=== PATIENT | male | born 1980 | race Caucasian/White ===

== ENCOUNTER → 2016-07-28 | Outpatient (CLI) | payer BC ==
[~2016-07-28] MED LIST: [UNRECOGNIZED DRUG - CODE]
[2016-07-28 12:40] LABS: BASO % 0.8 %; BASO ABS # 0.09 K/uL (0-0.2); COMPLETE YES; EOS % 4.3 %; HEMATOCRIT 46.5 % (42-52); LYMPH % 24.5 %; LYMPH ABS # 2.82 K/uL (1.2-3.4); MEAN CELL VOLUME 90.3 fL (80-100); MEAN CORPUSCULAR HEMOGLOBIN 30.9 pg (25-34); MEAN CORPUSCULAR HGB CONC 34.2 g/dl (32-36); MEAN PLATELET VOLUME 11.1 fL (7.4-10.4); MONO % 9.3 %; NEUT % 60.1 %; PLATELET COUNT 270 K/uL (130-400); RED BLOOD COUNT 5.15 M/uL (4.7-6.1); WHITE BLOOD COUNT 11.53 K/uL (4.8-10.8)
[2016-07-28 12:56] LABS: BLOOD UREA NITROGEN 19 mg/dl (7-18); BUN/CREATININE RATIO 20.6 (10-20); CALCIUM 8.8 mg/dl (8.5-10.1); CARBON DIOXIDE 27 mmol/L (21-32); CHLORIDE 107 mmol/L (98-107); CHOLESTEROL 230 mg/dl (0-200); CREATININE 0.94 mg/dl (0.60-1.40); GLUCOSE 91 mg/dl (70-99); POTASSIUM 4.1 mmol/L (3.5-5.1); SODIUM 141 mmol/L (136-145)
[2016-07-28 13:04] LABS: ALB/GLOB RATIO 1.2 (0.9-2); ALKALINE PHOSPHATASE 116 U/L (45-117); ALT/SGPT 45 U/L (12-78); AST/SGOT 19 U/L (15-37); CHOLESTEROL/HDL RATIO 6.1; HDL CHOLESTEROL 38 mg/dl; LDL CHOLESTEROL CALCULATED 146 mg/dl; TRIGLYCERIDES 229 mg/dl (0-150); VERY LOW DENSITY LIPOPROT CALC 46 mg/dl
== END | disposition home or self-care (01) ==
LOC: C.LABBFT 09:35
PROVIDERS: ATTEND Internal Medicine
DX: E78.5 Hyperlipidemia, unspecified (principal)

== ENCOUNTER → 2017-01-23 | Outpatient (CLI) | payer BC ==
[2017-01-23 17:39] LABS: BASO % 0.6 %; BASO ABS # 0.07 K/uL (0-0.2); COMPLETE YES; EOS % 3.4 %; HEMATOCRIT 45.1 % (42-52); IG% 1.2 %; LYMPH % 22.9 %; LYMPH ABS # 2.83 K/uL (1.2-3.4); MEAN CORPUSCULAR HEMOGLOBIN 31.4 pg (25-34); MEAN CORPUSCULAR HGB CONC 34.1 g/dl (32-36); MEAN PLATELET VOLUME 10.9 fL (7.4-10.4); MONO % 8.4 %; NEUT % 63.5 %; PLATELET COUNT 275 K/uL (130-400); WHITE BLOOD COUNT 12.34 K/uL (4.8-10.8)
[2017-01-23 17:48] LABS: CHOLESTEROL/HDL RATIO 8.1
== END | disposition home or self-care (01) ==
LOC: C.LABBFT 17:38
PROVIDERS: ATTEND Internal Medicine
DX: D72.829 Elevated white blood cell count, unspecified (principal); E78.5 Hyperlipidemia, unspecified

== ENCOUNTER → 2017-06-29 | Outpatient (CLI) | payer BC ==
[2017-06-29 12:27] LABS: BASO % 0.7 %; BASO ABS # 0.07 K/uL (0-0.2); COMPLETE YES; EOS % 3.1 %; EOS ABS # 0.31 K/uL (0-0.5); HEMATOCRIT 45.6 % (42-52); HEMOGLOBIN 15.3 g/dL (14.0-18.0); IG# 0.12 K/uL (0.00-0.02); IG% 1.2 %; LYMPH % 24.6 %; LYMPH ABS # 2.43 K/uL (1.2-3.4); MEAN CELL VOLUME 93.4 fL (80-100); MEAN CORPUSCULAR HEMOGLOBIN 31.4 pg (25-34); MEAN CORPUSCULAR HGB CONC 33.6 g/dl (32-36); MEAN PLATELET VOLUME 10.9 fL (7.4-10.4); MONO % 9.7 %; MONO ABS # 0.96 K/uL (0.11-0.59); NEUT % 60.7 %; PLATELET COUNT 262 K/uL (130-400); RED BLOOD COUNT 4.88 M/uL (4.7-6.1); RED CELL DISTRIBUTION WIDTH CV 14.1 % (11.5-14.5); RED CELL DISTRIBUTION WIDTH SD 47.3 fL (36.4-46.3); WHITE BLOOD COUNT 9.89 K/uL (4.8-10.8)
[2017-06-29 15:07] LABS: ALBUMIN 3.9 gm/dl (3.4-5.0); ALT/SGPT 45 U/L (12-78); AST/SGOT 22 U/L (15-37); BLOOD UREA NITROGEN 15 mg/dl (7-18); CALCIUM 8.8 mg/dl (8.5-10.1); CARBON DIOXIDE 26 mmol/L (21-32); CHLORIDE 105 mmol/L (98-107); CHOLESTEROL 165 mg/dl (0-200); CHOLESTEROL/HDL RATIO 4.7; CREATININE 0.92 mg/dl (0.60-1.40); EstGFR CKD-E NON AfrAm 104.4; HDL CHOLESTEROL 35 mg/dl; POTASSIUM 4.2 mmol/L (3.5-5.1); SODIUM 136 mmol/L (136-145); TRIGLYCERIDES 174 mg/dl (0-150); VERY LOW DENSITY LIPOPROT CALC 35 mg/dl
[2017-06-29 15:07] LABS: GLUCOSE 99 mg/dl (70-99)
[2017-06-29 15:09] LABS: ALB/GLOB RATIO 1.1 (0.9-2); ALKALINE PHOSPHATASE 125 U/L (45-117); LDL CHOLESTEROL (DIRECT) 102 mg/dl; TOTAL PROTEIN 7.3 gm/dl (6.4-8.2)
== END | disposition home or self-care (01) ==
LOC: C.LABBFT 08:59
DX: E78.5 Hyperlipidemia, unspecified (principal); D72.829 Elevated white blood cell count, unspecified; E78.1 Pure hyperglyceridemia

== ENCOUNTER → 2017-07-05 | Outpatient (CLI) | payer BC ==
--- NOTE | 2017-07-05 10:29 | DIAGNOSTIC IMAGING REPORT ---
ABDOMEN ULTRASOUND FOR HERNIA CLINICAL HISTORY: Umbilical hernia. COMPARISON STUDY: None. FINDINGS: Small fat-containing umbilical hernia. This also contains a trace amount of fluid. This increases with Valsalva maneuver and is only partially reducible. The neck of the hernia measures approximately 1 cm. The hernia sac measures up to 2.7 cm. No definite bowel identified within the hernia. IMPRESSION: Small fat-containing umbilical hernia. This is only partially reducible. Electronically signed by: Jemal Domingo M.D. 07/05/2017 10:27 AM Dictated Date/Time: 07/05/2017 10:26 AM
== END | disposition home or self-care (01) ==
LOC: C.ULTR 09:41
PROVIDERS: ATTEND Physician Assistant Medical
DX: K42.9 Umbilical hernia without obstruction or gangrene (principal)

== ENCOUNTER → 2017-09-26 | Outpatient (CLI) | payer BC ==
--- NOTE | 2017-09-26 17:43 | DIAGNOSTIC IMAGING REPORT ---
L SHOULDER MIN 2 VIEWS ROUTINE CLINICAL HISTORY: M25.512 Acute pain of left shoulder COMPARISON: None. DISCUSSION: No fractures or dislocations are visualized. There are no visible periarticular calcifications. IMPRESSION: Unremarkable conventional radiographic evaluation of the left shoulder. Electronically signed by: Gus Garcia M.D. 09/26/2017 5:42 PM Dictated Date/Time: 09/26/2017 5:41 PM
== END | disposition home or self-care (01) ==
LOC: C.RAD 16:50
PROVIDERS: ATTEND Nurse Practitioner
DX: M25.512 Pain in left shoulder (principal)

== ENCOUNTER → 2017-10-11 | Outpatient (CLI) | payer BC ==
[~2017-10-11] MED LIST changes: +ATOR-22 PO; +LISI20TA3 PO; +NAPR-1169 PO
[2017-10-11 16:34] LABS: BASO % 0.6 %; BASO ABS # 0.07 K/uL (0-0.2); EOS % 4.8 %; EOS ABS # 0.59 K/uL (0-0.5); HEMATOCRIT 45.7 % (42-52); HEMOGLOBIN 15.1 g/dL (14.0-18.0); IG# 0.12 K/uL (0.00-0.02); LYMPH % 19.3 %; LYMPH ABS # 2.36 K/uL (1.2-3.4); MEAN CELL VOLUME 92.7 fL (80-100); MEAN CORPUSCULAR HEMOGLOBIN 30.6 pg (25-34); MEAN PLATELET VOLUME 10.4 fL (7.4-10.4); MONO % 9.6 %; MONO ABS # 1.18 K/uL (0.11-0.59); NEUT % 64.7 %; NEUT ABS # 7.91 K/uL (1.4-6.5); PLATELET COUNT 273 K/uL (130-400); RED CELL DISTRIBUTION WIDTH CV 13.8 % (11.5-14.5); RED CELL DISTRIBUTION WIDTH SD 46.9 fL (36.4-46.3); WHITE BLOOD COUNT 12.23 K/uL (4.8-10.8)
[2017-10-11 16:45] LABS: BLOOD UREA NITROGEN 20 mg/dl (7-18); CALCIUM 8.7 mg/dl (8.5-10.1); CARBON DIOXIDE 25 mmol/L (21-32); CREATININE 1.05 mg/dl (0.60-1.40); GLUCOSE 108 mg/dl (70-99); POTASSIUM 4.1 mmol/L (3.5-5.1); SODIUM 137 mmol/L (136-145)
== END | disposition home or self-care (01) ==
LOC: C.LABBFT 14:10
PROVIDERS: ATTEND Surgery
DX: K42.9 Umbilical hernia without obstruction or gangrene (principal); Z01.812 Encounter for preprocedural laboratory examination

== ENCOUNTER → 2017-10-29 | Day surgery (SDC) | payer BC ==
[2017-10-18 14:56] VITALS: Ht 167.6 cm; Wt 127.3 kg
[~2017-10-29] VITALS: Ht 167.6 cm; Wt 127.3 kg
[~2017-10-29] MED LIST changes: +ATROPINE SULFATE 0.1 MG/ML 5ML SYR IV PRN; +BUPIVACAINE 0.5 % 5 MG/1 ML MPF 30ML VIAL ONE; +CEFAZOLIN 3000MG IV PUSH 22.5 ML IV SCH; +DEXAMETHASONE SOD INJ 4 MG/ML VIAL ONE; +EpHEDrine SULFATE INJ 50 MG/ML AMP IV PRN; +FENTANYL CITRATE INJ 50 MCG/1 ML 2 ML VIAL IV PRN; +FENTANYL CITRATE INJ 50 MCG/1 ML 2 ML VIAL ONE; +FLUMAZENIL 0.1 MG/1 ML 10 ML VIAL IV PRN; +GLYCOPYRROLATE INJ 0.2 MG/ML VIAL ONE; +HYDROmorphone INJ 0.5 MG/0.5 ML SYR IV PRN; +IBUP-1451 PO; +KETOROLAC TROMETHAMINE 30 MG/ML VIAL ONE; +LABETALOL HCL IV 5 MG/ML 20ML IV PRN; +LACTATED RINGER'S 1000ML 1,000 ML IV SCH; +LARYING-O-JET KIT (LTA) ONE; +LIDOCAINE HCL 2% 2 ML VIAL (20MG/ML) ONE; +MEPERIDINE HCL 25 MG/ML CARP IV PRN; +MIDAZOLAM HCL 1 MG/ML 2ML VIAL ONE; +MoRPHine SULFATE 4 MG/ML 1 ML CARP\\VIAL IV PRN; +NALOXONE HCL 0.4 MG/1 ML VIAL/CARP IV PRN; +NEOSTIGMINE METHYLSULFATE 5 MG/5 ML SYR ONE; +ONDANSETRON INJ 2 MG/ML 2 ML VIAL IV PRN; +ONDANSETRON INJ 2 MG/ML 2 ML VIAL ONE; +OXYC-57 PO; +OXYCODONE/ACETAMINOPHEN 5-325 TAB PO PRN; +PHENYLEPHRINE 100MCG/ML 5ML SYR IV PRN; +PROPOFOL IV EMULSION 10 MG/ML 20 ML VIAL ONE; +ROCURONIUM BROMIDE 10 MG/ML 5 ML VIAL ONE; -[UNRECOGNIZED DRUG - CODE]
[2017-10-29 05:25] VITALS: BP 131/93; PULSE 89; TEMP 36.7; O2SAT 95
--- NOTE | 2017-10-29 06:47 | History & Physical Bridge Note ---
H&P Re-Evaluation Bridge Note: I have examined the patient, reviewed the History & Physical and in the interval since the performance of the History & Physical I have noted the following changes of clinical significance: No changes noted
--- NOTE | 2017-10-29 07:46 | [facility] Post Operative Brief Note ---
Immediate Operative Summary Operative Date October 29, 2017. Pre-Operative Diagnosis Umbilical Hernia Post-Operative Diagnosis Umbilical Hernia Procedure(s) Performed Open Umbilical Hernia Repair with Mesh Surgeon Dr Sherman [employer] Translator Surgeon(s) Mauricio Queen PA-C Estimated Blood Loss 2cc Findings Consistent with Post-Op Diagnosis 1.5 cm defect Specimens A: None per surgeon Drains None Anesthesia Type General Complication(s) none Disposition Accompanied Pt To Recover: no Disposition: Recovery Room / PACU
--- NOTE | 2017-10-29 07:50 | [facility] Operative Report ---
Operative Report Operative Date October 29, 2017. Pre-Operative Diagnosis Umbilical Hernia Post-Operative Diagnosis Umbilical hernia Procedure(s) Performed Open umbilical hernia repair with mesh Surgeon Dr Sherman Revenue Accounting Manager Surgeon(s) Mauricio Queen PA-C Estimated Blood Loss 2cc Findings 1.5 cm defect identified, hernia reduced. 4.3 cm piece of CQur mesh sewn into place using interrupted 0 Nurolon sutures. Specimens A: None per surgeon Drains None Anesthesia GETA Complication(s) None Disposition Recovery Room / PACU Indications 37-year-old obese male with symptomatic umbilical hernia, desires repair. Plan for open umbilical hernia repair. The risks of the procedure were discussed, all questions were answered, and the patient agreed to proceed with surgery as planned. Description of Procedure The patient was properly identified, consented, and taken to the operating room where he was placed in the supine position. General endotracheal anesthesia was induced. SCDs and a safety belt were placed. Preoperative antibiotics were administered. The patient's abdomen was prepped and draped in the standard sterile fashion. Surgical timeout was performed and all parties were in agreement that this was the correct patient and procedure to be performed and we continued as planned. A curvilinear infraumbilical incision was made and deepened down to the fascia with blunt dissection. The umbilical stalk was circumferentially dissected with a Adriane, and divided below the level of the skin. A 1.5 cm fascial defect was encountered. The hernia was reduced. The fascia anteriorly and posteriorly was cleared of investing tissue for several centimeters. Hemostasis was achieved within the wound. Due to the patient's body habitus and job description, a 4.3 cm piece of CQur mesh was sown into place with interrupted 0 Nurolon sutures. The wound was irrigated and hemostasis confirmed. The umbilicus was tacked down to the fascia with 3-0 Vicryl sutures. Local anesthetic in the form of 0.5% Marcaine was injected in the fascia and along the skin incision. The skin was closed with interrupted 3-0 Vicryl deep dermal sutures, followed by 4-0 Monocryl running subcuticular suture. Dermabond was placed over the wound. A pressure dressing was then applied after the Dermabond dried. The patient was extubated in the operating room and taken to the PACU where he recovered without apparent incident. All sponge, instrument and needle counts were correct at the conclusion of the procedure. The patient tolerated the procedure well. The physician's occupational therapist assistant was present and scrubbed for the entirety of the case. He was essential in positioning the patient, prepping and draping, retraction and exposure, repair of the hernia, closure of the incision, and placement of the dressings. I attest to the content of the Intraoperative Record and any orders documented therein. Any exceptions are noted below.
--- NOTE | 2017-10-29 08:02 | Discharge Instructions ---
Discharge Instructions Date of Service October 29, 2017. Visit Reason for Visit: Umbilical Hernia Discharge Discharge Diagnosis / Problem: umbilical hernia repair Discharge Goals Goal(s): Decrease discomfort Activity Recommendations Activity Limitations: as noted below Lifting Limitations: no more than 10 pounds Shower/Bathe: tomorrow (remove bandage to shower) Driving or Machine Use: resume 3 days after discharge Anesthesia . Post Anesthesia Instructions: If you have had General Anesthesia or IV Sedation: * Do not drive today. * Resume driving when surgeon permits. * Do not make important decisions or sign legal documents today. * Call surgeon for: 1. Temperature elevations greater than 101 degrees F. 2. Uncontrollable pain. 3. Excessive bleeding. 4. Persistent nausea and vomiting. 5. Medication intolerance (nausea, vomiting or rash). * For nausea and vomiting use only clear liquids such as: tea, soda, bouillon until nausea subsides, then gradually increase diet as tolerated. * If you have any concerns or questions, call your surgeon's office. If physician is unavailable and it is an emergency, call 911 or go to the nearest emergency room. . Instructions / Follow-Up Instructions / Follow-Up Dr. Sherman in 1-2 weeks as planned, call [phone] if you have any questions or need to schedule an appt Diet Recommendations Recommended Home Diet: no limitations Procedures Procedures Performed: Open Umbilical Hernia Repair with Mesh Pending Studies Studies pending at discharge: no Medical Emergencies . Who to Call and When: Medical Emergencies: If at any time you feel your situation is an emergency, please call 911 immediately. . Non-Emergent Contact Non-Emergency issues call your: Surgeon Call Non-Emergent contact if: you have a fever, temperature is above 101.5, your pain is not controlled, wound has increased redness . . "Provider Documentation" section prepared by Tony Queen. .
[2017-10-29 09:25] VITALS: BP 120/68; PULSE 86; TEMP 36.4; O2SAT 90
[2017-10-29 09:55] VITALS: BP 115/68; PULSE 91; O2SAT 91
--- NOTE | 2017-10-29 10:13 | Anesthesiology Progress Note ---
Anesthesia Post Op Note Date & Time October 29, 2017 at 10:13 Vital Signs Pain Intensity: 1 Vital Signs Past 12 Hours Date Time Temp Pulse Resp B/P (MAP) Pulse Ox O2 Delivery O2 Flow Rate FiO2 10/29/17 09:55 91 18 115/68 91 Room Air 10/29/17 09:25 36.4 86 18 120/68 90 Room Air 10/29/17 09:15 36.1 87 21 123/68 93 Nasal Cannula 2 10/29/17 09:05 81 17 114/77 94 Nasal Cannula 2 10/29/17 08:55 80 15 125/78 94 Nasal Cannula 2 10/29/17 08:45 75 17 99/65 93 Nasal Cannula 4 10/29/17 08:35 55 20 76/42 93 Nasal Cannula 4 10/29/17 08:25 82 18 128/75 91 Room Air 10/29/17 08:15 77 21 103/69 96 Oxymask 15 10/29/17 08:06 36.2 81 16 111/68 92 Oxymask 10 10/29/17 05:25 36.7 89 18 131/93 (106) 95 Room Air Notes Mental Status: alert / awake / arousable, participated in evaluation Pt Amnestic to Procedure: Yes Nausea / Vomiting: adequately controlled Pain: adequately controlled Airway Patency, RR, SpO2: stable & adequate BP & HR: stable & adequate Hydration State: stable & adequate Anesthetic Complications: no major complications apparent
[2017-10-29 10:20] VITALS: BP 115/68; PULSE 95; TEMP 36.3; O2SAT 95
== END | disposition home or self-care (01) ==
LOC: C.ACU 05:10
PROVIDERS: ATTEND Surgery
DX: K42.9 Umbilical hernia without obstruction or gangrene (principal); E66.01 Morbid (severe) obesity due to excess calories; I10 Essential (primary) hypertension; E78.5 Hyperlipidemia, unspecified; E78.1 Pure hyperglyceridemia; G47.33 Obstructive sleep apnea (adult) (pediatric); Z87.01 Personal history of pneumonia (recurrent); Z83.3 Family history of diabetes mellitus; Z82.49 Family history of ischemic heart disease and other diseases of the circulatory system; Z80.3 Family history of malignant neoplasm of breast; Z83.42 Family history of familial hypercholesterolemia

== ENCOUNTER 2024-01-25 06:27 | Observation (INO) ==
--- NOTE | 2024-01-10 11:08 | PAT Medication Instructions ---
Medication Instructions Date of Service January 10, 2024 Home Medications Medication Instructions Recorded meloxicam 15 mg tablet 15 mg PO QPM #90 tabs 07/02/23 rosuvastatin 5 mg tablet (Crestor) 5 mg PO QPM #90 tabs 09/17/23 meloxicam 15 mg tablet 15 mg PO QPM rosuvastatin 5 mg tablet (Crestor) 5 mg PO QPM olmesartan 5 mg tablet 5 mg PO QPM tirzepatide 15 mg/0.5 mL subcutaneous pen injector (Mounjaro) 15 mg subcut Q7D weight loss ASK your surgeon for instructions meloxicam 15 mg tablet 15 mg PO QPM STOP 7 days prior to surgery tirzepatide 15 mg/0.5 mL subcutaneous pen injector (Mounjaro) 15 mg subcut Q7D weight loss Take evening before surgery rosuvastatin 5 mg tablet (Crestor) 5 mg PO QPM olmesartan 5 mg tablet 5 mg PO QPM NOTHING TO EAT OR DRINK AFTER MIDNIGHT Other Notes If you have any questions please call us at [phone] or [phone] or [phone] or [phone]
--- NOTE | 2024-01-14 13:16 | Anesthesiology Consultation ---
Date of Service January 14, 2024 Assessment & Plan (1) Encounter for pre-operative examination: - check BSG am DOS. - tirzepatide instructions: Patient informed at PAT visit to stop 7 days prior to surgery-voiced understanding. - Outpatient joint assessment: Patient is currently scheduled for inpatient pathway. If re-evaluated and patient/surgeon requests outpatient pathway, patient is acceptable candidate for outpatient joint program from anesthesia standpoint pending surgeon's office assessment of pt m otivation/support/completion of same day joint program preop requirements. Chart Review Chart Review: Acceptable Risk for Surgery and Patient seen in Pre Admission Testing Teaching & Discussion Pre-Anesthesia Teaching/Discussion Notes: Instructed NPO after midnight before surgery, except medications with 15 cc of water. Medication instructions provided according to the [facility] guidelines. History Surgery Operation Date: 01/25/24 07:00 Proposed Procedures p Left Total Knee Arthroplasty - Frank Mckeon MD Height/Weight Height: 5 ft 6 in Weight: 103.3 kg Allergies Allergy/AdvReac Type Severity Reaction Status Date / Time No Known Allergies AdvReac Unknown Verified 01/10/24 10:33 Medications Home Medications Medication Instructions Recorded Confirmed Last Taken meloxicam 15 mg tablet 15 mg PO QPM #90 tabs 07/02/23 01/10/24 Unknown rosuvastatin 5 mg tablet (Crestor) 5 mg PO QPM #90 tabs 09/17/23 01/10/24 Unknown olmesartan 5 mg tablet 5 mg PO QPM 01/10/24 01/10/24 Unknown tirzepatide 15 mg/0.5 mL 15 mg subcut Q7D weight loss 01/10/24 01/10/24 Unknown subcutaneous pen injector (Mounjaro) Past Medical History Medical History (Updated 01/16/24 @ 10:25 by Charito Araujo PA-C) Arthritis of both knees Carpal tunnel syndrome, left Cervical radiculopathy "seems ok now, since injection" Hx of type 2 diabetes mellitus weight loss of 100lb since 2022; currently on mounjaro for weight loss Hyperlipidemia Hypertension controlled, stable per pt Knee effusion, right denies change or worsening-non erythematous Morbid obesity Pneumonia (~2013) no problems since Severe obstructive sleep apnea CPAP-compliant Patient denies h/o stroke, seizures, heart attack, heart failure, blood clots/DVTs or blood transfusions. Exercise / Class Metabolic Activity II 4-5 Yardwork/Stairs/Walk up hill (denies chest discomfort or shortness of breath with one flight of stairs) Past Family History Family History Aunt Breast cancer Other No family history of adverse response to anesthesia Denies family history of Ovarian cancer Prostate cancer Myocardial infarction Colorectal cancer Past Surgical History Surgical History H/O umbilical hernia repair S/P left knee arthroscopy Past Anesthesia History No Hx of Anesthesia Complications and No Family Hx of Anesthesia Complications History of PONV No Hx of PONV and No Hx of Motion Sickness Social History Smoking Status: Never smoker tobacco type: smokeless tobacco Do You Dip or Chew Tobacco: Yes (advised) Hx Alcohol Use: Yes Alcohol type: beer alcohol intake frequency: holidays/special occasions only Hx Substance Use: No substance use type: does not use Review of Systems Patient denies chest pain, shortness of breath, dyspnea on exertion, reflux, fever, chills, cough, wheezing, or palpitations. Physical Exam Vital Signs Vitals BP 103/71 P 84 TEMP 98.3 SP02 97% on RA RESP 18 Physical Patient resting comfortably in chair in no acute distress, alert and oriented, responding appropriately throughout visit Full cervical extension range of motion without pain TMD 3.5 finger breadths Mallampati Score 3 Dentition: intact, denies chipped or loose teeth, caps/crowns, implants or bridges Lungs: normal respiratory effort. Good air movement, clear throughout to auscultation, no adventitious breath sounds Cardiac: regular rate and rhythm, no murmurs noted Carotid arteries: negative bruit bilat Lab Results Anesthesia Preop Results Results Anesthesia Widget: WBC 11.82 K/ul (4.8-10.8) H 01/14/24 Hgb 15.0 g/dl (14.0-18.0) 01/14/24 Hct 43.9 % (42.0-52.0) 01/14/24 Plt 278 K/uL (130-400) 01/14/24 Na 139 mmol/L (136-145) 01/14/24 K 4.4 mmol/L (3.5-5.1) 01/14/24 Cl 106 mmol/L (98-107) 01/14/24 CO2 27 mmol/L (21-32) 01/14/24 BUN 19 mg/dl (6-23) 01/14/24 Creat 0.82 mg/dl (0.6-1.4) 01/14/24 Glucose Level 78 mg/dl (70-99(Fasting)) 01/14/24 PT 10.9 Seconds (9.0-12.0) 01/14/24 PTT 30 Seconds (21-31) 01/14/24 INR 1.0 (0.9-1.1) 01/14/24 HA1c 4.6 % (4.5-5.6) 01/14/24 Blood Type O Positive 01/14/24 Antibody Screen NEGATIVE 01/14/24 Testing Electrocardiogram Date: 01/14/24 NSR, rate 80 bpm Left axis deviation Low voltage QRS Chest X-Ray Date: 01/14/24 No acute cardiopulmonary findings.
[~2024-01-25 06:27] MED LIST changes: -ATOR-22 PO; -ATROPINE SULFATE 0.1 MG/ML 5ML SYR IV PRN; -BUPIVACAINE 0.5 % 5 MG/1 ML MPF 30ML VIAL ONE; +BUPIVACAINE 0.5 % 5 MG/1 ML PF 10ML VIAL ONE; -CEFAZOLIN 3000MG IV PUSH 22.5 ML IV SCH; -DEXAMETHASONE SOD INJ 4 MG/ML VIAL ONE; -EpHEDrine SULFATE INJ 50 MG/ML AMP IV PRN; -FENTANYL CITRATE INJ 50 MCG/1 ML 2 ML VIAL IV PRN; -FENTANYL CITRATE INJ 50 MCG/1 ML 2 ML VIAL ONE; -FLUMAZENIL 0.1 MG/1 ML 10 ML VIAL IV PRN; -GLYCOPYRROLATE INJ 0.2 MG/ML VIAL ONE; -HYDROmorphone INJ 0.5 MG/0.5 ML SYR IV PRN; -IBUP-1451 PO; -KETOROLAC TROMETHAMINE 30 MG/ML VIAL ONE; -LABETALOL HCL IV 5 MG/ML 20ML IV PRN; -LACTATED RINGER'S 1000ML 1,000 ML IV SCH; -LARYING-O-JET KIT (LTA) ONE; -LIDOCAINE HCL 2% 2 ML VIAL (20MG/ML) ONE; -LISI20TA3 PO; -MEPERIDINE HCL 25 MG/ML CARP IV PRN; -MIDAZOLAM HCL 1 MG/ML 2ML VIAL ONE; -MoRPHine SULFATE 4 MG/ML 1 ML CARP\\VIAL IV PRN; -NALOXONE HCL 0.4 MG/1 ML VIAL/CARP IV PRN; -NAPR-1169 PO; -NEOSTIGMINE METHYLSULFATE 5 MG/5 ML SYR ONE; -ONDANSETRON INJ 2 MG/ML 2 ML VIAL IV PRN; -ONDANSETRON INJ 2 MG/ML 2 ML VIAL ONE; -OXYC-57 PO; -OXYCODONE/ACETAMINOPHEN 5-325 TAB PO PRN; -PHENYLEPHRINE 100MCG/ML 5ML SYR IV PRN; -PROPOFOL IV EMULSION 10 MG/ML 20 ML VIAL ONE; -ROCURONIUM BROMIDE 10 MG/ML 5 ML VIAL ONE; +ROPIVACAINE 0.5% 5 MG/ML 30 ML VIAL ONE
--- NOTE | 2024-01-25 06:46 | History & Physical Bridge Note ---
Date of Service January 25, 2024 History & Physical Bridge Note I have examined the patient, reviewed the History & Physical and in the interval since the performance of the History & Physical I have noted the following changes of clinical significance: no changes noted
[2024-01-25] MEDS: METOCLOPRAMIDE HCL 10 MG TABLET PO SCH (06:55)
[2024-01-25] MEDS: ACETAMINOPHEN 500 MG TAB PO SCH ×2 (06:55→13:21)
[2024-01-25] MEDS: FAMOTIDINE 20 MG TAB PO SCH (06:55)
[2024-01-25] MEDS: CeleBREX 200 MG CAP PO SCH (06:55)
[2024-01-25] MEDS: LR 60ML/HR IV SCH (06:55)
[2024-01-25] MEDS: LR 500ML BOLUS, THEN 15ML/HR IV SCH (07:08)
[2024-01-25] MEDS ORDERED: ONDANSETRON INJ 2 MG/ML 2 ML VIAL ONE (07:39)
[2024-01-25] MEDS ORDERED: MIDAZOLAM HCL 1 MG/ML 2ML VIAL ONE ×2 (07:39→09:30)
[2024-01-25] MEDS ORDERED: GLYCOPYRROLATE 0.2 MG/ML VIAL ONE (07:39)
[2024-01-25] MEDS ORDERED: PROPOFOL IV EMULSION 10 MG/ML 100 ML VIAL IV ONE (07:39)
[2024-01-25] MEDS ORDERED: ePHEDrine sulfate 50 MG/ML AMP IV PRN (08:27)
[2024-01-25] MEDS ORDERED: ONDANSETRON INJ 2 MG/ML 2 ML VIAL IV PRN ×2 (08:27→12:48)
[2024-01-25] MEDS ORDERED: HYDROmorphone INJ 2 MG/ML SYR/VIAL IV PRN (08:27)
[2024-01-25] MEDS ORDERED: ATROPINE SULFATE 0.1 MG/ML 10ML SYR IV PRN (08:27)
[2024-01-25] MEDS: ceFAZolin 2000MG 2,000 MG/15 ML SYR IV SCH ×2 (09:21→17:14)
[2024-01-25] MEDS: ORTHO JOINT ANESTHETIC ONE (09:59)
[2024-01-25] MEDS: ROPIV 0.5% 246mg, Ketorolac 30mg, EPINEPHrine 0.5mg in NSS INFIL SCH (10:25)
[2024-01-25] MEDS: TRANEXAMIC ACID 1,000 MG **IV Intra-op IV SCH (10:27)
[2024-01-25] MEDS ORDERED: PHENYLEPHRINE 100MCG/ML 10ML SYR IV ONE (10:43)
[2024-01-25] MEDS ORDERED: ePHEDrine sulfate 50 MG/5 ML SYR ONE (10:43)
--- NOTE | 2024-01-25 11:23 | Operative Report ---
[facility] Post Operative Report Pre & Post Diagnosis Operation Date: 01/25/24 08:50 Pre-Op Diagnosis: Left Knee Degenerative Joint Disease Post-Op Diagnosis: Left Knee Degenerative Joint Disease I identified the patient and participated in the time-out.: Yes Procedure Operation Date: 01/25/24 08:50 Actual Procedures p Left Total Knee Arthroplasty(Left) - Frank Mckeon MD Surgeon Frank Mckeon MD Assembler For Puller Over Hand Gabbi Melvin PA-C Estimated Blood Loss 50 Findings Consistent with Post-Op Diagnosis Operative findings were advanced left knee medial compartment DJD. Extensive grade 4 changes medially with [id number] disease in the anteromedial compartment. Eburnation of the medial femoral condyle medial tibial plateau. Osteophytes off the medial side of the knee primarily. Fixed varus deformity to his knee. Moderate to large knee joint effusion. Specimens Left knee sent for pathology. Anesthesia Type Spinal MAC Complications none Disposition Accompanied Patient To Recovery: No Indications Patient is a 44-year-old gentleman has had a long history of a gradual progressive increasing bilateral knee pain discomfort. He did have a left knee arthroscopy and medial meniscus repair several years ago which really did not help much. She been through extensive conservative treatment in 60+ pounds of weight loss with a adequate relief. He elected proceed with surgical treatment. Description of Procedure Operative implants consist of: 1 Biomet Vanguard size 65 left posterior stabilized femoral component. 2. Biomet size 71 tibial tray. 3. 10 mm posterior stabilized polyethylene insert. 4. 31 x 8 all poly patella. The patient was taken the operating, identified, placed on the operating table in the supine position. All conductors were appropriately padded. IV antibiotic 5 by anesthesia team. A spinal anesthetic and adductor canal block had provided holding area. A left thigh turn was then placed. The left lower extremity was then prepped and draped in usual sterile fashion. The left leg was elevated and exsanguinated with use of an Esmarch and the turn was placed at 300 mmHg. An anterior approach the left knee was then performed through a longitudinal incision centered over the patella. Sharp dissection Through subcutaneous tissue down the extensor mechanism. A medial parapatellar arthrotomy incision was made. Some subperiosteal dissection was carried out medially. The fat pad was dissected free the patella tendon. Lateral patellofemoral ligament was released. Patella subluxated laterally and the knee was flexed. The osteophytes taken on distal femur. The ACL and PCL were then released to the distal femur and the tibia subluxated anteriorly. External tibial alignment jig was then placed on the anterior face the tibia and adjusted 14 mm medially. Proximal tibial cut was made remove about a millimeter bone from most deficient aspect medial tibial plateau. Some osteophytes taken medial and posterior medially. The tibia was sized to a size 71. Attention drawn the femur. The distal femur termed a sharp drill. Intramedullary canal was suction. A left 6 degree valgus cutting guide was placed. The distal femoral cutting block was pinned in place. This femoral cut was made to take an additional 3 mm of bone off distal femur. The femur was then sized to size 65. The AP cutting block was pinned parallel to the epicondylar axis which was 5 degrees of external rotation. The anterior cut, anterior chamfer, posterior cut, posterior chamfer cuts were made. The box cutting guide was placed and just slight lateral box cut was made. The knee was flexed. The remnants of the medial and lateral menisci were excised. The osteophytes taken off the posterior aspect the femur. Trial femoral component was placed for the tibial tray was pinned in Adry external rotation and the drill and stem punch were used. Defect in proximal tibia for the tibial tray. The knee was then trialed the 10 mm insert fit most appropriately. Attention drawn the patella. The patella was cleaned of all soft tissues. Patella thickness measured 22 mm in thickness was cut down to 13. Was sized to a size 31 patella. The lug holes were drilled for 31 patella. The lateral osteophytes removed. Patella button was placed. Knee was taken through range of motion and the patella tracked nicely with no thumbs test. Attention drawn to place the permanent components. All trial components were removed. Bone plug was placed in the distal femur limit blood loss. A double batch Palacos G cement was mixed. Biomet SurgeonKidzguard size 65 left posterior stabilized femoral component, size 71 tibial tray, 10 mm posterior Byce polyethylene insert, 31 x 8 all poly patella then cemented in place. The knee was brought out into full extension till cement hardened. Final cement check was then performed. Pericapsular tissues were injected with total of 100 cc of combination of Ortho mix. The patient did receive 1 g tr anexamic acid. The tourniquet was then let down for final treatment time 60 minutes. Hemostasis assured use electrocautery. Extensor Meclomen closed with combination 1 PDS suture #1 Vicryl suture in a [id number] fashion. Extensor Meclomen checked found to be intact and subcutaneous tissue then closed with 2 Dexon suture in a buried interrupted fashion skin was closed skin nahed. Leg was then cleaned and dried a sterile dressing with Xeroform, 4 fours, sterile cast padding, Godwin bandage were applied. The patient was then transferred to the recovery room in stable condition. Patient tolerated procedure well and there were no complications. Gabbi MELVIN, my physician collections assistant, was present for the entire procedure. Her assistance was required for proper patient positioning, prepping and draping, surgical closure, retraction, perform the technical details of the operation, placement of the implant, closure of the incision site and placement of sterile bandage. I attest to the content of the Intraoperative Record and any orders documented therein. Any exceptions are noted below.
--- NOTE | 2024-01-25 12:11 | XRay Report ---
XR knee LT 1 or 2V routine CLINICAL HISTORY: Postoperative evaluation. COMPARISON: Left knee radiographs June 27, 2023. FINDINGS: Alignment of the total left knee arthroplasty is anatomic. No periprosthetic fracture or u nexpected radiopaque foreign body. There are skin nahed. IMPRESSION: Expected findings following total left knee arthroplasty. ACT 112: Negative or not required by law. Electronically signed by: Brandt Duran M.D. 01/25/2024 12:10 PM
--- NOTE | 2024-01-25 12:15 | Anesthesiology Progress Note ---
Date of Service January 25, 2024 Anesthesia Post Procedure Vital Signs Vital Signs: Temp Pulse Pulse Resp BP BP Pulse Ox 01/25/24 12:00 36.2 C L 80 18 104/66 95 01/25/24 11:50 72 18 104/59 L 95 01/25/24 11:40 74 17 106/61 94 01/25/24 11:30 88 16 103/59 L 94 01/25/24 11:20 71 16 102/63 96 01/25/24 11:12 36.1 C L 86 16 94/50 L 95 01/25/24 06:45 01/25/24 06:45 36.5 C 82 16 129/86 97 O2 Del Method O2 Flow Rate 01/25/24 12:00 Room Air 01/25/24 11:50 Room Air 01/25/24 11:40 Room Air 01/25/24 11:30 Room Air 01/25/24 11:20 Oxymask 5 01/25/24 11:12 Oxymask 5 01/25/24 06:45 Room Air 01/25/24 06:45 Room Air Pain Intensity Left Knee: Pain Intensity: 4 Transfer of Care Handoff Completed per policy Notes Mental Status: alert / awake / arousable and participated in evaluation Nausea / Vomiting: adequately controlled Pain: adequately controlled Airway Patency, RR, SpO2: stable & adequate BP & HR: stable & adequate Hydration State: stable & adequate Neuraxial Anesthesia: was administered and sensory block is resolving Anesthetic Complications: no major complications apparent and Pt Satisfied with anesthetic care
[2024-01-25] MEDS ORDERED: ALUMINUM/MAGNESIUM SUSP 30 ML UDC PO PRN (12:48)
[2024-01-25] MEDS ORDERED: MAGNESIUM HYDROXIDE SUSP 30 ML UDC PO PRN (12:48)
[2024-01-25] MEDS ORDERED: bisacodyL 10 MG SUPP PR PRN (12:48)
[2024-01-25] MEDS ORDERED: METOCLOPRAMIDE HCL INJ 5 MG/ML 2 ML VIAL IV PRN (12:48)
[2024-01-25] MEDS ORDERED: diphenhydrAMINE Capsule 25 MG CAP PO PRN (12:48)
[2024-01-25] MEDS ORDERED: HYDROmorphone INJ 0.5 MG/0.5 ML SYR IV PRN (12:48)
[2024-01-25] MEDS ORDERED: NALOXONE HCL 0.4 MG/1 ML VIAL/CARP IV PRN (12:48)
[2024-01-25] MEDS ORDERED: TAMSULOSIN HCL 0.4 MG CAP PO PRN (12:48)
[2024-01-25] MEDS: SODIUM CHLORIDE 0.9% 1,000 ML IV SCH (12:55)
[2024-01-25] MEDS: KETOROLAC 30 MG/ML VIAL IV SCH (13:21)
[2024-01-25] MEDS: oxyCODONE HCL IR 5 MG TAB (IMMEDIATE RELEASE) PO PRN (17:13)
[2024-01-25] MEDS: ASCORBIC ACID 500 MG TAB PO SCH (17:14)
[2024-01-25] MEDS: TRANEXAMIC ACID / 0.7% NACL 1,000 MG/100 ML BAG IV SCH (17:25)
[2024-01-25] MEDS: SENNA 8.6 MG TAB PO SCH (20:23)
[2024-01-25] MEDS: ROSUVASTATIN CALCIUM 5 MG TAB PO SCH (20:23)
[2024-01-25] MEDS: DOCUSATE SODIUM 100 MG CAP PO SCH (20:24)
[2024-01-25] MEDS: LOSARTAN POTASSIUM 25 MG TAB PO SCH (20:24)
[2024-01-25] MEDS: ASPIRIN 81 MG ECTAB PO SCH (20:25)
[2024-01-25] MEDS ORDERED: SENNA 8.6 MG TAB PO SCH (21:00)
[2024-01-26 06:13] LABS: Hematocrit (blood only) 38.6 % (42.0-52.0); Hemoglobin 12.7 g/dl (14.0-18.0); Mean Corpuscular Hemoglobin 30.3 pg (25.0-34.0); Mean Corpuscular Hgb Conc 32.9 g/dL (32.0-36.0); Mean Corpuscular Volume 92.1 fL (80.0-100.0); Mean Platelet Volume 8.8 fL (9.4-12.4); Platelet Count 218 K/uL (130-400); RDW Coefficient of Variation 13.8 % (11.5-14.5); RDW Standard Deviation 47.3 fL (36.4-46.3); Red Blood Count 4.19 M/uL (4.70-6.10)
[2024-01-26 06:27] LABS: BUN Creatinine Ratio 16.5 (10-20); Calcium 8.3 mg/dl (8.6-10.3); Creatinine Clr Calc Pharmacy 114.4 ml/min; Est GFR (African American) 116.7 ml/min; Est GFR (Non-African American) 100.7 ml/min; Potassium 4.4 mmol/L (3.5-5.1)
[2024-01-26 07:33] VITALS: BP 116/72; PULSE 71; RESP 16; TEMP 97.5; O2SAT 97
[2024-01-26] MEDS: MULTIVITAMIN TAB PO SCH (07:55)
[2024-01-26] MEDS: dexAMETHasone 10 MG in SYRINGE 0 ML IV SCH (07:56)
--- NOTE | 2024-01-26 08:12 | Orthopedic Progress Note ---
Date of Service January 26, 2024 Assessment & Plan (1) Status post left knee replacement: Plan: 44-year-old male postop day 1 from left knee replacement. He is doing pretty well. Pain is controlled. He is neurologically intact. Plan: 1. DVT prophylaxis including thigh-high teds, SCDs, aspirin twice a day. 2. PT/OT. Weight-bear as tolerated left total knee protocol. 3. Pain control doing well with current pain regimen. 4. Disposition plan to discharge to home with some home health. (2) Class 2 obesity due to excess calories with body mass index (BMI) of 37.0 to 37.9 in adult: (3) Right knee DJD: (4) Hyperlipidemia: (5) Type 2 diabetes mellitus: (6) Essential hypertension: Admission and Anticipated Discharge Date Admission Date: January 25, 2024 Subjective 44-year-old male postop day 1 from left knee replacement. He is doing pretty well. Has some pain but very manageable. No chest pain or shortness of breath. Not feeling dizzy or lightheaded. Hoping to go home today. Physical Exam Physical Exam: Physical examination was a pleasant middle-aged male. Lying in bed this morning looks pretty comfortable. Examination of left leg reveals dressing clean dry and intact. He can dorsiflex and plantarflex his foot appropriately. He is neurologically intact. Respiratory: normal respiratory effort, lungs clear to auscultation Cardiovascular: RRR, no murmur, no edema Gastrointestinal (Abdomen): normal bowel sounds, soft, nontender, no hepatosplenomegaly Results & Data Vital Signs (Past 12 Hours) Vital Signs Temp Pulse Resp BP Pulse Ox O2 Del Method 01/26/24 07:32 36.4 C L 71 16 116/72 97 Room Air 01/26/24 03:26 36.6 C 85 18 111/70 96 CPAP 01/25/24 22:59 36.8 C 81 18 113/72 96 Room Air 01/25/24 22:28 Room Air Laboratory Results Hemoglobin is 12.7. Hematocrit is 38.6. Electrolytes are stable. (2) Class 2 obesity due to excess calories with body mass index (BMI) of 37.0 to 37.9 in adult Serious obesity comorbidity presence: with serious comorbidity Qualified Code(s): E66.01 - Morbid (severe) obesity due to excess calories; Z68.37 - Body mass index [BMI] 37.0-37.9, adult
== END 2024-01-26 10:31 | disposition home health service (06) ==
LOC: ASU 06:27 → 3E 06:27

== ENCOUNTER 2024-12-31 09:14 | Observation (INO) ==
--- NOTE | 2024-11-28 09:50 | PAT Medication Instructions ---
Medication Instructions Date of Service November 28, 2024 Home Medications Medication Instructions Recorded Wilton Rhodes #1 ea 01/30/24 acetaminophen 500 mg tablet 1,000 mg (2 x 500 mg) PO TID pain 11/13/24 (Tylenol Extra Strength) 30 days #180 tabs meloxicam 15 mg tablet 15 mg PO PM #90 tabs 11/13/24 olmesartan 5 mg tablet 5 mg PO QPM #90 tabs 11/13/24 rosuvastatin 5 mg tablet (Crestor) 5 mg PO QPM #90 tabs 11/13/24 tirzepatide 15 mg/0.5 mL 15 mg (0.5 mL) subcut Q7D #2 mL 11/13/24 subcutaneous pen injector (Mounjaro) acetaminophen 500 mg tablet (Tylenol Extra Strength) 1,000 mg (2 x 500 mg) PO TID pain meloxicam 15 mg tablet 15 mg PO PM olmesartan 5 mg tablet 5 mg PO QPM rosuvastatin 5 mg tablet (Crestor) 5 mg PO QPM tirzepatide 15 mg/0.5 mL subcutaneous pen injector (Mounjaro) 15 mg (0.5 mL) subcut Q7D ASK your surgeon for instructions meloxicam 15 mg tablet 15 mg PO PM STOP 7 days prior to surgery tirzepatide 15 mg/0.5 mL subcutaneous pen injector (Mounjaro) 15 mg (0.5 mL) subcut Q7D Take morning of surgery With a small sip of water, OTHERWISE NOTHING TO EAT OR DRINK AFTER MIDNIGHT: acetaminophen 500 mg tablet (Tylenol Extra Strength) 1,000 mg (2 x 500 mg) PO TID pain Take evening before surgery acetaminophen 500 mg tablet (Tylenol Extra Strength) 1,000 mg (2 x 500 mg) PO TID pain olmesartan 5 mg tablet 5 mg PO QPM rosuvastatin 5 mg tablet (Crestor) 5 mg PO QPM Other Notes If you have any questions please call us at [phone] or [phone] or [phone] or [phone]
--- NOTE | 2024-12-05 11:57 | Anesthesiology Consultation ---
Date of Service December 05, 2024 Assessment & Plan (1) Encounter for pre-operative examination: Plan - check BSG am DOS. - tirzepatide instructions: Patient informed at PAT visit to stop 7 days prior to surgery- voiced understanding. Patient advised to check with prescriber to see if alternative diabetic management changes recommended while holding tirzepatide- if so, patient to call back to PAT to update chart and discuss if any further preop medication instructions needed. - Outpatient joint assessment: Patient is currently scheduled for inpatient pathway. If re-evaluated and patient/surgeon requests outpatient pathway, patient is acceptable candidate for outpatient joint program from anesthesia standpoint pending surgeon's office assessment of pt motivation/support/completion of same day joint program preop requirements. Chart Review Chart Review: Acceptable Risk for Surgery and Patient seen in Pre Admission Testing Teaching & Discussion Pre-Anesthesia Teaching/Discussion Notes: Instructed NPO after midnight before surgery, except medications with 15 cc of water. Medication instructions provided according to the [facility] guidelines. History Surgery Operation Date: 12/31/24 07:00 Proposed Procedures p Right Total Knee Arthroplasty - Frank Mckeon MD Height/Weight Height: 5 ft 6 in Weight: 107.5 kg Allergies Allergy/AdvReac Type Severity Reaction Status Date / Time No Known Allergies AdvReac Unknown Verified 11/28/24 08:36 Medications Home Medications Medication Instructions Recorded Confirmed Last Taken Wilton Rhodes #1 ea 01/30/24 03/13/24 Unknown acetaminophen 500 mg tablet 1,000 mg (2 x 500 mg) PO TID pain 11/13/24 11/28/24 Unknown (Tylenol Extra Strength) 30 days #180 tabs meloxicam 15 mg tablet 15 mg PO PM #90 tabs 11/13/24 11/28/24 Unknown olmesartan 5 mg tablet 5 mg PO QPM #90 tabs 11/13/24 11/28/24 Unknown rosuvastatin 5 mg tablet (Crestor) 5 mg PO QPM #90 tabs 11/13/24 11/28/24 Unknown tirzepatide 15 mg/0.5 mL 15 mg (0.5 mL) subcut Q7D #2 mL 11/13/24 11/28/24 Unknown subcutaneous pen injector (Mounjaro) Past Medical History Medical History (Updated 12/05/24 @ 11:53 by Charito Araujo PA-C) Arthritis of both knees Carpal tunnel syndrome, left Cervical radiculopathy "seems ok now, since injection" Hx of type 2 diabetes mellitus weight loss of 100lb since 2022; currently on mounjaro for weight loss Hyperlipidemia Hypertension controlled, stable per pt Knee effusion, right denies change or worsening-non erythematous Morbid obesity Severe obstructive sleep apnea CPAP-compliant Patient denies h/o stroke, seizures, heart attack, heart failure, blood clots/DVTs or blood transfusions. Exercise / Class Metabolic Activity II 4-5 Yardwork/Stairs/Walk up hill (denies chest discomfort or shortness of breath with one flight of stairs) Past Family History Family History Aunt Breast cancer Other No family history of adverse response to anesthesia Denies family history of Ovarian cancer Prostate cancer Myocardial infarction Colorectal cancer Past Surgical History Surgical History (Updated 12/05/24 @ 11:53 by Charito Araujo PA-C) H/O umbilical hernia repair History of total left knee replacement S/P left knee arthroscopy Past Anesthesia History No Hx of Anesthesia Complications and No Family Hx of Anesthesia Complications History of PONV No Hx of PONV and No Hx of Motion Sickness Social History Smoking Status: Never smoker tobacco type: smokeless tobacco Do You Dip or Chew Tobacco: Yes (advised npo) Hx Alcohol Use: Yes Alcohol type: beer alcohol intake frequency: a few times a month Hx Substance Use: No substance use type: does not use Review of Systems Patient denies chest pain, shortness of breath, dyspnea on exertion, reflux, fever, chills, cough, wheezing, or palpitations. Physical Exam Vital Signs Vitals BP 101/70 P 77 TEMP 98.2 SP02 97% on RA RESP 17 Physical Patient resting comfortably in chair in no acute distress, alert and oriented, responding appropriately throughout visit Full cervical extension range of motion without pain TMD 3.5 finger breadths Mallampati Score 3 Dentition: intact, denies chipped or loose teeth, caps/crowns, implants or bridges Lungs: normal respiratory effort. Good air movement, clear throughout to auscultation, no adventitious breath sounds Cardiac: regular rate and rhythm, no murmurs noted Carotid arteries: negative bruit bilat Musculoskeletal: right knee mild effusion, non-erythematous (Pt denies change since seeing ortho) Lab Results Anesthesia Preop Results Results Anesthesia Widget: WBC 9.17 K/ul (4.8-10.8) 12/05/24 Hgb 14.9 g/dl (14.0-18.0) 12/05/24 Hct 43.7 % (42.0-52.0) 12/05/24 Plt 223 K/uL (130-400) 12/05/24 Na 140 mmol/L (136-145) 12/05/24 K 4.6 mmol/L (3.5-5.1) 12/05/24 Cl 107 mmol/L (98-107) 12/05/24 CO2 28 mmol/L (21-32) 12/05/24 BUN 19 mg/dl (6-23) 12/05/24 Creat 0.86 mg/dl (0.6-1.4) 12/05/24 Glucose Level 79 mg/dl (70-99(Fasting)) 12/05/24 PT 10.9 Seconds (9.0-12.0) 12/05/24 PTT 31 Seconds (21-31) 12/05/24 INR 1.0 (0.9-1.1) 12/05/24 HA1c 4.6 % (4.5-5.6) 12/05/24 Blood Type O Positive 12/05/24 Antibody Screen NEGATIVE 12/05/24 Testing Electrocardiogram Date: 01/14/24 NSR, rate 80 bpm Left axis deviation Low voltage QRS No significant change vs 08/03/21 EKG Chest X-Ray Date: 01/14/24 No acute cardiopulmonary findings.
[2024-12-31] MEDS: LR 60ML/HR IV SCH (09:52)
[2024-12-31] MEDS: LR 500ML BOLUS, THEN 15ML/HR IV SCH (09:52)
[2024-12-31] MEDS: CeleBREX 200 MG CAP PO SCH (09:53)
[2024-12-31] MEDS: ACETAMINOPHEN 500 MG TAB PO SCH ×2 (09:53→17:10)
[2024-12-31] MEDS: METOCLOPRAMIDE HCL 10 MG TABLET PO SCH (09:53)
[2024-12-31] MEDS: FAMOTIDINE 20 MG TAB PO SCH (09:53)
[2024-12-31] MEDS: dexAMETHasone**PF** 10 MG/ML VIAL IV SCH (09:54)
[2024-12-31] MEDS ORDERED: ONDANSETRON INJ 2 MG/ML 2 ML VIAL ONE (10:08)
[2024-12-31] MEDS ORDERED: PROPOFOL IV EMULSION 10 MG/ML 20 ML VIAL IV ONE ×2 (10:08→12:57)
[2024-12-31] MEDS ORDERED: LIDOCAINE 2% 2 ML VIAL/AMP(20MG/ML) INFIL ONE (10:08)
[2024-12-31] MEDS ORDERED: MIDAZOLAM HCL 1 MG/ML 2ML VIAL ONE ×3 (10:08)
[2024-12-31] MEDS ORDERED: ATROPINE SULFATE 0.1 MG/ML 10ML SYR IV PRN (10:58)
[2024-12-31] MEDS ORDERED: ONDANSETRON INJ 2 MG/ML 2 ML VIAL IV PRN ×2 (10:58→14:26)
--- NOTE | 2024-12-31 11:20 | History & Physical Bridge Note ---
Date of Service December 31, 2024 History & Physical Bridge Note I have examined the patient, reviewed the History & Physical and in the interval since the performance of the History & Physical I have noted the following changes of clinical significance: no changes noted
[2024-12-31] MEDS ORDERED: KETAMINE HCL 10MG/ML SYR ONE (11:44)
[2024-12-31] MEDS: ORTHO JOINT ANESTHETIC ONE (12:48)
[2024-12-31] MEDS: ROPIV 0.5% 246mg, Ketorolac 30mg, EPINEPHrine 0.5mg in NSS INFIL SCH (12:48)
--- NOTE | 2024-12-31 13:42 | Operative Report ---
PG Post Operative Report Pre & Post Diagnosis Operation Date: 12/31/24 11:10 Pre-Op Diagnosis: Right Knee Osteoarthritis Post-Op Diagnosis: Right Knee Osteoarthritis I identified the patient and participated in the time-out.: Yes Procedure Operation Date: 12/31/24 11:10 Actual Procedures p Right Total Knee Arthroplasty(Right) - Frank Mckeon MD Surgeon Frank Mckeon MD [employer] Operator Raza Tyler PA-C: Harris Rosado PA-C Estimated Blood Loss 50 Findings Consistent with Post-Op Diagnosis Operative findings were advanced right knee medial compartment DJD with full- thickness cartilage loss medial femoral condyle medial tibial plateau. He had a varus deformity to his knee. The rest of his knee was pretty well-preserved. Moderate-sized joint effusion. Specimens Right knee sent for pathology. Anesthesia Type Spinal MAC Complications none Disposition Accompanied Patient To Recovery: No Indications Patient is a 44-year-old gentleman with a long history of bilateral knee pain discomfort describes gotten worse over time. He had extensive treatment for the knee arthritis. He needed his left knee replaced years ago and done well with this. Continue to be limited by right knee pain discomfort stiffness. He failed all conservative measures. He elected proceed with total knee arthroplasty. Description of Procedure Operative implants consist of: 1 Biomet Vanguard size 65 right posterior stabilized femoral component. 2. Biomet size 71 tibial tray. 3. 10 mm posterior stabilized polyethylene insert. 4. 31 x 8 all poly patella. The patient was taken the op room, identified, placed on the operating table in the supine position. All conductors were appropriately padded. IV antibiotics were by anesthesia team. A spinal anesthetic and adductor canal block had been [place] in the holding area. A right thigh high tourniquet was then placed. The right lower extremity was then prepped and draped in usual sterile fashion. The right leg was elevated and exsanguinated with use of a Esmarch and a turn was placed at 300 mmHg. An anterior approach of the right knee was then performed to longitudinal incision centered over the patella. Sharp dissection was carried through subcutaneous tissue down to the extensor mechanism. A medial parapatellar arthrotomy incision was made. Some subperiosteal dissection was carried out medially. The fat pad was dissected from the patella tendon. The lateral patellofemoral ligament was released. Patella subluxated laterally and knee was flexed. The osteophytes taken off distal femur. The ACL and PCL were released from the distal femur and the tibia subluxated anteriorly. The external tibial alignment jig was then placed on the anterior face of the tibia and adjusted 14 mm medially. Proximal tibial cut was made to remove about 2 mm of bone from the medial side. Tibia was sized to a size 71. Attention drawn the femur. The distal femur the sharp drill. Intramedullary canal was suction. Right 6 degree valgus cutting guide was placed. The distal femoral cutting block was pinned in place. Distal femoral cut was made take an additional 3 mm of bone off distal femur. The femur was then sized to a size 65. The AP cutting block was pinned parallel to the epicondylar axis which was 3 degrees of external rotation. The anterior cut, anterior chamfer, posterior cut, posterior chamfer cuts were made. The box cutting guide was placed and just slight lateral and the box cut was made. The knee was flexed. The remnants of the medial and lateral menisci were excised. The osteophytes taken off the posterior aspect of femur. A trial femoral component was placed. Tibial tray was pinned in Adry external rotation and the drill and stem punch used to create defect from proxim al tibia for the tibial tray. The knee was then trialed and the knee 10 mm insert fit most appropriately. Attention drawn the patella. The patella was cleaned of all soft tissue. Patella thickness measured 23 mm in thickness was cut down to 14. Was sized to a size 31 patella. The lug holes were drilled for a 31 patella. Lateral osteophytes removed. Patella button was placed. Knee was taken through a range of motion and the patella tracked nicely with no thumbs test. Attention then drawn to placement permanent components. NuPrep all trial components were removed. Bone plug was placed in the distal femur limit blood loss. Double batch [place] G cement was mixed. Biomet Luxury Fashion Tradeguard size 65 right posterior stabilized femoral component, size 71 tibial tray, a 10 mm posterior stabilized polyethylene insert, and a 31 x 8 all poly patella then cemented in place. The knee was brought out into full extension till cement hardened. Final cement check was then performed. The pericapsular tissues were injected with total 100 cc of Ortho mix. Patient did receive 1 g tranexamic acid. The tourniquet was then let down for final tourniquet time of 54 minutes. Hemostasis assured with electrocautery. Extensor Metros then closed with combination 1 PDS suture #1 Vicryl suture in a [id number] fashion. Extensor [place] checked found to be intact. Subcutaneous tissue then closed with 2 Dexon suture in a buried interrupted fashion skin was closed skin nahed. Leg was then cleaned and dried and a sterile dressing with Xeroform, 4 fours, sterile cast padding, Godwin bandage were applied. Patient then transferred to the recovery room in stable condition. Patient tolerated procedure well and there were no complications. Harris Rosado, my physician internet marketing assistant, was present for the entire procedure. His assistance was required for proper patient positioning, prepping draping, surgical exposure, retraction, perform the technical details of the operation, placement implants, closure of the incision site, and placement of the postoperative sterile bandage. I attest to the content of the Intraoperative Record and any orders documented therein. Any exceptions are noted below.
--- NOTE | 2024-12-31 13:54 | XRay Report ---
XR knee RT 1 or 2V routine CLINICAL HISTORY: Surgical Post Op COMPARISON: None FINDINGS: Right knee prosthesis shows no hardware complication. There is expected soft tissue gas. S kin nahed are present. IMPRESSION: Unremarkable postoperative exam. ACT 112: Negative or not required by law. Electronically signed by: Shoaib Marc M.D. 12/31/2024 1:53 PM
--- NOTE | 2024-12-31 13:54 | Anesthesiology Progress Note ---
Date of Service December 31, 2024 Anesthesia Post Procedure Vital Signs Vital Signs: Temp Pulse Pulse Resp BP Pulse Ox O2 Del Method 12/31/24 13:50 36.6 C 85 19 110/69 93 Nasal Cannula 12/31/24 13:40 88 19 104/67 93 Nasal Cannula 12/31/24 13:30 89 21 100/56 L 94 Room Air 12/31/24 13:24 36.0 C L 93 H 23 96/48 L 93 Oxymask 12/31/24 09:40 37.1 C 80 20 120/79 97 Room Air O2 Flow Rate 12/31/24 13:50 2 12/31/24 13:40 2 12/31/24 13:30 12/31/24 13:24 7 12/31/24 09:40 Notes Mental Status: alert / awake / arousable Patient Amnestic to Procedure: Yes Nausea / Vomiting: adequately controlled Pain: adequately controlled Airway Patency, RR, SpO2: stable & adequate BP & HR: stable & adequate Hydration State: stable & adequate Neuraxial Anesthesia: was administered Anesthetic Complications: no major complications apparent
[2024-12-31] MEDS ORDERED: ALUMINUM/MAGNESIUM SUSP 30 ML UDC PO PRN (14:26)
[2024-12-31] MEDS ORDERED: METOCLOPRAMIDE HCL INJ 5 MG/ML 2 ML VIAL IV PRN (14:26)
[2024-12-31] MEDS ORDERED: HYDROmorphone INJ 0.5 MG/0.5 ML SYR IV PRN (14:26)
[2024-12-31] MEDS ORDERED: MAGNESIUM HYDROXIDE SUSP 30 ML UDC PO PRN (14:26)
[2024-12-31] MEDS ORDERED: diphenhydrAMINE Capsule 25 MG CAP PO PRN (14:26)
[2024-12-31] MEDS ORDERED: TAMSULOSIN HCL 0.4 MG CAP PO PRN (14:26)
[2024-12-31] MEDS ORDERED: ACETAMINOPHEN 500 MG TAB PO SCH (14:26)
[2024-12-31] MEDS ORDERED: NALOXONE HCL 0.4 MG/1 ML VIAL/CARP IV PRN (14:26)
[2024-12-31] MEDS: SODIUM CHLORIDE 0.9% 1,000 ML IV SCH (14:47)
[2024-12-31] MEDS: KETOROLAC 30 MG/ML VIAL IV SCH (17:09)
[2024-12-31] MEDS: ASCORBIC ACID 500 MG TAB PO SCH (17:10)
[2024-12-31] MEDS: DOCUSATE SODIUM 100 MG CAP PO SCH (19:58)
[2024-12-31] MEDS: SENNA 8.6 MG TAB PO SCH (19:58)
[2024-12-31] MEDS: ROSUVASTATIN CALCIUM 5 MG TAB PO SCH (20:01)
[2024-12-31] MEDS: LOSARTAN POTASSIUM 25 MG TAB PO SCH (20:01)
[2024-12-31] MEDS: TRANEXAMIC ACID / 0.7% NACL 1,000 MG/100 ML BAG IV SCH (20:02)
[2024-12-31] MEDS: ASPIRIN 81 MG ECTAB PO SCH (20:02)
[2024-12-31] MEDS ORDERED: SENNA 8.6 MG TAB PO SCH (21:00)
[2025-01-01 03:29] VITALS: O2SAT 97
[2025-01-01 06:00] LABS: Hematocrit (blood only) 36.5 % (42.0-52.0); Hemoglobin 12.6 g/dl (14.0-18.0); Mean Corpuscular Hemoglobin 31.1 pg (25.0-34.0); Mean Corpuscular Volume 90.1 fL (80.0-100.0); Platelet Count 231 K/uL (130-400); RDW Standard Deviation 44.7 fL (36.4-46.3); Red Blood Count 4.05 M/uL (4.70-6.10); White Blood Count 21.70 K/ul (4.8-10.8)
[2025-01-01 06:20] LABS: Anion Gap 5.0 (3-11); Blood Urea Nitrogen 16.0 mg/dl (6-23); Calcium 8.3 mg/dl (8.6-10.3); Carbon Dioxide 25.0 mmol/L (21-32); Chloride 109.0 mmol/L (98-107); Creatinine Clr Calc Pharmacy 129.7 ml/min; Glucose 120.0 mg/dl (70-99(Fasting)); Potassium 4.4 mmol/L (3.5-5.1); Sodium 139.0 mmol/L (136-145)
[2025-01-01 07:12] VITALS: RESP 16
[2025-01-01] MEDS: MULTIVITAMIN TAB PO SCH (07:17)
[2025-01-01] MEDS: dexAMETHasone 10 MG in SYRINGE 0 ML IV SCH (07:17)
[2025-01-01 07:38] VITALS: PULSE 80; TEMP 98.1
--- NOTE | 2025-01-01 09:29 | Orthopedic Progress Note ---
Date of Service January 01, 2025 Assessment & Plan (1) Status post total right knee replacement: (2) Aftercare following right knee joint replacement surgery: Plan 44-year-old gentleman POD# 1 s/p right total knee replacement, doing well overall. Pain is well-controlled. Medically stable. Postop x-rays well- appearing. He is neurologically intact. Plan: 1. DVT prophylaxis w/ TEDs, SCDs, ASA 81 mg BID. 2. PT/OT as tolerated. WBAT on the R LE. Encourage heel slides, SLR, full knee extension w/ quad sets. 3. Pain control doing well with current pain regimen. 4. Dressing change POD#2 per discharge instructions. Do not get dressing wet for 5 days. 5. Disposition - plan to D/C home w/ [facility] later today once cleared by PT/OT. 6. F/u 2 weeks post-op w/ orthopedics (Dr. Mckeon's team), or as previously scheduled, for first post-op visit. Subjective Patient is POD# 1 s/p right total knee arthroplasty by Dr. Mckeon on 12/31/2024. Patient says his pain is well-controlled this morning; in fact, he is having significantly less pain than he did on POD #1 with the contralateral left total knee arthroplasty done last January. Denies CP, SOB, N/V, or LE paresthesia. [facility] has [facility] to come to the house for therapy. Patient says that he will be ready to go home today. He is familiar with the postoperative course, having had the left knee replaced last January. Review of Systems All systems reviewed & are unremarkable except as noted in HPI & below. Physical Exam GENERAL: AA&Ox3, NAD. Pleasant, affect is calm. Sitting in bed and appears comfortable. RESPIRATORY: Normal respiratory effort with no signs of distress. CHEST/AXILLA: Chest movement symmetrical. No deformities noted. CARDIOVASCULAR: No edema noted. SKIN: [place], warm and dry. MS/EXTREMITY: Knee dressing & PO wrap c/d/i. MARI hose donned to contralateral LE. + ankle dorsi/plantarflexion. NVI distally. Calf soft/NT. PT/DP pulses intact, 2+. Able to SLR without assistance. Results & Data Results & Data Laboratory Results Laboratory Results - last 24 hr 12/31/24 01/01/25 13:27 05:41 WBC 21.70 H RBC 4.05 L Hgb 12.6 L Hct 36.5 L MCV 90.1 MCH 31.1 MCHC 34.5 RDW Std Deviation 44.7 RDW Coeff of Js 13.5 Plt Count 231 MPV 9.1 L Sodium 139 Potassium 4.4 Chloride 109 H Carbon Dioxide 25 Anion Gap 5 BUN 16 Creatinine 0.82 Est Cr Clr Drug Dosing 129.7 eGFR 109.71 BUN/Creatinine Ratio 19.5 Glucose 120 H POC Glucose 111 H Calcium 8.3 L Diagnostic Findings Knee X-Ray 12/31/24 13:34 XR knee RT 1 or 2V routine CLINICAL HISTORY: Surgical Post Op COMPARISON: None FINDINGS: Right knee prosthesis shows no hardware complication. There is expected soft tissue gas. Skin nahed are present. IMPRESSION: Unremarkable postoperative exam. ACT 112: Negative or not required by law. Electronically signed by: Shoaib Marc M.D. 12/31/2024 1:53 PM PG Care Time/CCT Total # of Minutes Spent Total Time Spent with Patient: Total time spent is greater than 50% in coordination of care (as documented) at patient's floor/unit and/or counseling patient: [place] [address] Post Operative Follow-Up Patient Type Established History Problem Focused Exam Problem Focused Medical Decision Making Straight Forward Diagnoses Status post total right knee replacement Z96.651 Aftercare following right knee joint replacement surgery Z47.1; Z96.651
[2025-01-01 10:15] VITALS: BP 118/71
== END 2025-01-01 10:37 | disposition home health service (06) ==
LOC: ASU 09:14 → 3E 09:14